=== PATIENT | male | born 1960 | race Caucasian/White ===

== ENCOUNTER → 2016-10-11 | Outpatient (CLI) | payer BC ==
[2016-10-11 07:23] LABS: HEMOGLOBIN 13.1 gm/dl (14.0-17.5); RED BLOOD COUNT 4.39 M/UL (4.20-5.50); WHITE BLOOD COUNT 4.5 K/UL (4.5-11.0)
[2016-10-11 07:42] LABS: BUN/CREATININE RATIO 18 (0-10)
== END ==
LOC: LAB 06:20
PROVIDERS: Emergency Medicine
DX: Z00.01 Encounter for general adult medical examination with abnormal findings (principal); R35.1 Nocturia; N40.2 Nodular prostate without lower urinary tract symptoms
CPT/HCPCS: 36415; 80053; 80061; 84153; 85027; 86618

== ENCOUNTER → 2016-10-25 | Outpatient (CLI) | payer BC | LOC: LAB 06:09 | DX: R53.83 Other fatigue (principal); L08.89 Other specified local infections of the skin and subcutaneous tissue; R50.81 Fever presenting with conditions classified elsewhere; R79.89 Other specified abnormal findings of blood chemistry | CPT/HCPCS: 36415; 82607; 82728; 83540; 83550; 84443 ==

== ENCOUNTER → 2020-05-09 | Outpatient (CLI) | payer OTHER | LOC: HEART 5 10:03 | DX: J44.9 Chronic obstructive pulmonary disease, unspecified (principal); J45.40 Moderate persistent asthma, uncomplicated; R94.2 Abnormal results of pulmonary function studies | CPT/HCPCS: 94010; 94729 ==

== ENCOUNTER → 2021-08-11 | Outpatient (CLI) | payer OTHER ==
[2021-08-11 07:43] LABS: HEMOGLOBIN 14.5 gm/dl (14.0-17.5); RED BLOOD COUNT 4.85 M/UL (4.20-5.50); WHITE BLOOD COUNT 6.7 K/UL (4.5-11.0)
[2021-08-11 08:21] LABS: BUN/CREATININE RATIO 15 (0-10)
== END ==
LOC: LAB 07:20
PROVIDERS: Emergency Medicine
DX: R10.32 Left lower quadrant pain (principal); R10.33 Periumbilical pain
CPT/HCPCS: 80053; 83690; 85025

== ENCOUNTER → 2021-09-03 | Outpatient (CLI) | payer OTHER | LOC: CT 08-27 15:00 | DX: R10.32 Left lower quadrant pain (principal); R10.33 Periumbilical pain; K76.89 Other specified diseases of liver | CPT/HCPCS: 74160; Q9967 ==